=== PATIENT | female | born 1945 | race Caucasian/White ===

== ENCOUNTER 2016-06-12 07:28 | Day surgery (SDC) | payer MEDICARE, OTHER ==
[~2016-06-12 07:28] MED LIST: Acetaminophen TAB* 325 MG PO PRN; Buffered Lidocaine 1% SYR 3ML* 3 ML/SYR SYRINGE INTRADERM ONE
[2016-06-12] MEDS ORDERED: fentaNYL* 50 MCG/ML 2 ML VIAL (100 MCG VIAL) ONE (08:23)
[2016-06-12] MEDS ORDERED: Midazolam* 1 MG/ML 5 ML VIAL (5 MG) ONE (08:23)
[2016-06-12 10:39] VITALS: BP 159/64
--- NOTE | 2016-06-12 12:18 | OP ---
DATE OF OPERATION: 06/12/2016 - [facility] DATE OF : 1945. SURGEON: Landon Ramirez M.D. PREOPERATIVE DIAGNOSIS: Cataract right eye. POSTOPERATIVE DIAGNOSIS: Cataract right eye. OPERATIVE PROCEDURE: Phacoemulsification right eye with IOL. DESCRIPTION OF PROCEDURE: The patient was brought to the operating room after being given 1/2% Alcaine with epinephrine drops in the preoperative area. The eye was prepped and draped in the usual sterile fashion. Sterile drape and eyelid speculum were placed. Again, topical 1/2% Alcaine with epinephrine was given. A paracentesis incision was made at the 9 o'clock position with the No.75 blade. Clear cornea incision 2.2 x 2.2-mm was created at the 12 o'clock position starting at the anterior limbus using the 2.2-mm keratome. The anterior chamber was irrigated with 0.4 mL of 1% non-preservative intracameral lidocaine and filled with DisCoVisc. A capsulorrhexis was completed using the cystotome and the Utrata forceps. Hydrodissection was performed with balanced salt solution. The lens nucleus was removed with the Phacoemulsification handpiece without incident. Cortex was removed with the irrigation-aspiration handpiece. The capsular bag was re-inflated using DisCoVisc and an [id number] implant was inserted with the shooter. The irrigation-aspiration handpiece was used to remove all residual DisCoVisc. The eye was refilled with balanced salt solution and the wound checked and found to be watertight. Topical Maxitrol drops were given. [id number]/[facility] #: [id number] [facility]ITAL[facility]y
[2016-06-13] MEDS ORDERED: Cyclopentolate 1% OPTH.SOL* 2 ML BTL ONE (14:32)
[2016-06-13] MEDS ORDERED: acetaZOLAMIDE TAB* 250 MG ONE (14:32)
[2016-06-13] MEDS ORDERED: Flurbiprofen 0.03% OPTH.SOL* 2.5 ML BTL ONE (14:32)
[2016-06-13] MEDS ORDERED: Proparacaine 0.5% OPHTH.SOL* 15 ML BTL ONE (14:32)
[2016-06-13] MEDS ORDERED: Lidocaine 2% EPI 1:200000 MPF* 20 ML VIAL ONE (14:32)
[2016-06-13] MEDS ORDERED: Phenylephrine 2.5% OPTH.SOL* 2 ML BTL ONE (14:32)
[2016-06-13] MEDS ORDERED: Neomycin/Polymy/Dex OPTH.SUSP* MAXITROL 0.1% 5 ML ONE (14:32)
[2016-06-13] MEDS ORDERED: Lidocaine 1% MPF* 2 ML VIAL ONE (14:32)
[2016-06-13] MEDS ORDERED: Povidone Iodine 5% OPTH* 30 ML BTL ONE (14:32)
== END 2016-06-12 10:36 | disposition home or self-care (01) ==
LOC: OREAST 07:28
PROVIDERS: ATTEND Specialist
DX: H25.811 Combined forms of age-related cataract, right eye (principal); H43.813 Vitreous degeneration, bilateral; I10 Essential (primary) hypertension; R00.2 Palpitations
CPT/HCPCS: A9270-GY; J2250; J3010; V2632

== ENCOUNTER 2016-06-19 06:52 | Day surgery (SDC) | payer MEDICARE, OTHER ==
[2016-06-19] MEDS ORDERED: Lidocaine 1% MPF* 2 ML VIAL ONE (07:06)
[2016-06-19] MEDS ORDERED: Phenylephrine 2.5% OPTH.SOL* 2 ML BTL ONE (07:06)
[2016-06-19] MEDS ORDERED: Flurbiprofen 0.03% OPTH.SOL* 2.5 ML BTL ONE (07:06)
[2016-06-19] MEDS ORDERED: Neomycin/Polymy/Dex OPTH.SUSP* MAXITROL 0.1% 5 ML ONE (07:06)
[2016-06-19] MEDS ORDERED: Cyclopentolate 1% OPTH.SOL* 2 ML BTL ONE (07:06)
[2016-06-19] MEDS ORDERED: acetaZOLAMIDE TAB* 250 MG ONE (07:06)
[2016-06-19] MEDS ORDERED: Lidocaine 2% EPI 1:200000 MPF* 20 ML VIAL ONE (07:06)
[2016-06-19] MEDS ORDERED: Povidone Iodine 5% OPTH* 30 ML BTL ONE (07:06)
[2016-06-19] MEDS ORDERED: Proparacaine 0.5% OPHTH.SOL* 15 ML BTL ONE (07:20)
[2016-06-19 09:23] VITALS: BP 152/84
--- NOTE | 2016-06-20 00:46 | OP ---
DATE OF OPERATION: 06/19/16 - [facility] DATE OF : 45 SURGEON: Landon Ramirez M.D. PREOPERATIVE DIAGNOSIS: Cataract, left eye. POSTOPERATIVE DIAGNOSIS: Cataract, left eye. OPERATIVE PROCEDURE: Phacoemulsification, left eye with IOL. DESCRIPTION OF PROCEDURE: The patient was brought to the operating room after being given 1/2% Alcaine with epinephrine drops in the preoperative area. The eye was prepped and draped in the usual sterile fashion. Sterile drape and eyelid speculum were placed. Again, topical 1/2% Alcaine with epinephrine was given. A paracentesis incision was made at the 3 o'clock position with the No.75 blade. Clear cornea incision 2.2 x 2.2-mm was created at the 6 o'clock position starting at the anterior limbus using the 2.2-mm keratome. The anterior chamber was irrigated with 0.4 mL of 1% non-preservative intracameral lidocaine and filled with DisCoVisc. A capsulorrhexis was completed using the cystotome and the Utrata forceps. Hydrodissection was performed with balanced salt solution. The lens nucleus was removed with the Phacoemulsification handpiece without incident. Cortex was removed with the irrigation-aspiration handpiece. The capsular bag was re-inflated using DisCoVisc and an [id number] 19.5 implant was inserted with the shooter. The irrigation-aspiration handpiece was used to remove all residual DisCoVisc. The eye was refilled with balanced salt solution and the wound checked and found to be watertight. Topical Maxitrol drops were given. [id number]/[facility] #: [id number] [facility]
== END 2016-06-19 09:11 | disposition home or self-care (01) ==
LOC: OREAST 06:52
PROVIDERS: ATTEND Specialist
DX: H25.812 Combined forms of age-related cataract, left eye (principal); H43.813 Vitreous degeneration, bilateral; I10 Essential (primary) hypertension; R00.2 Palpitations
CPT/HCPCS: A9270-GY; V2632

== ENCOUNTER 2016-07-18 07:30 | Inpatient (IN) | payer MEDICARE, OTHER ==
--- NOTE | 2016-07-10 14:17 | HP ---
HISTORY AND PHYSICAL: DATE OF ADMISSION/SURGERY: 07/18/16 PROCEDURE: Left total knee arthroplasty. CHIEF COMPLAINT: Left knee pain. HISTORY OF PRESENT ILLNESS: Ms. Alvarez is a 70-year-old female with complaints of left knee pain s econdary to advanced osteoarthritis. She has failed conservative management and has elected to proc eed with a left total knee arthroplasty which is scheduled for 07/18/[address] Kramer. PAST MEDICAL HISTORY: Hypertension, high cholesterol, hypothyroidism. PAST SURGICAL HISTORY: Tonsillectomy, right total hip arthroplasty, x2, right great toe f usion. CURRENT MEDICATIONS: 1. Ramipril. 2. Hydrochlorothiazide. 3. Amlodipine. 4. Levothyroxine. 5. Atorvastatin. ALLERGIES: No known drug allergies. FAMILY HISTORY: Colon cancer, hypertension, stroke, and aortic aneurysm. SOCIAL HISTORY: She is a 70-year-old female. She is . She does not smoke or use drugs, use s occasional alcohol. REVIEW OF SYSTEMS: A complete review of systems was reviewed with the patient, was positive for hyp othyroidism. Negative for DVT, PE, hepatitis C, HIV, MRSA or anesthesia problems. PHYSICAL EXAMINATION GENERAL: She is well developed, well nourished. She is in no acute distress. She is alert and lucio ented x3. VITAL SIGNS: She stands 5 feet 5 inches tall, weighs 158 pounds. Her blood pressure is 148/90, hea rt rate 68. HEENT: Normocephalic, atraumatic. NECK: Supple. No palpable lymph nodes. Trachea is midline. PULMONARY: Lungs are clear to auscultation bilaterally. No wheezes, rhonchi, or rales. CARDIO: Regular rate and rhythm. Strong S1 and S2. No murmurs, gallops, or rubs. No peripheral ed julianna. ABDOMEN: Soft, nontender, nondistended. MUSCULOSKELETAL: Left lower extremity, the skin is intact. She has a mild-to- moderate joint effus ion and tenderness over the medial and lateral joint line. She has 2+ dorsalis pedis pulses. Intac t sensation and her lower extremity muscle group strengths are intact at 5/5. NEUROLOGICAL: Cranial nerves II through XII are intact. ASSESSMENT AND PLAN: Ms. Alvarez is a 70-year-old female with complaints of left knee pain seconda ry to advanced osteoarthritis. She has failed conservative management and has elected to proceed wi th a left total knee arthroplasty which is scheduled for 07/18/[address] Kramer discuss ed the risks and the benefits of the surgery at today's visit and all her questions were answered. C olace, Percocet and Coumadin were all sent to her pharmacy for postoperative pain control and DVT pr ophylaxis. She will see Dr. Kramer back 10 to 14 days after the surgery. SAJI CHOWDHURY [id number]/[facility] #: [id number]
[~2016-07-18 07:30] MED LIST changes: -Acetaminophen TAB* 325 MG PO PRN; -Buffered Lidocaine 1% SYR 3ML* 3 ML/SYR SYRINGE INTRADERM ONE; +Dexamethasone IV* 4 MG/ML 1 ML (4 MG) IV SLOW PU ONE; +Dexamethasone IV* 4 MG/ML 1 ML (4 MG) ONE; +DiMENhydriNATE IV* 50 MG/ML VIAL IV PUSH PRN; +Famotidine IV* 10 MG/ML 2 ML (20 mg) IV ONE; +Famotidine IV* 10 MG/ML 2 ML (20 mg) ONE; +HYDROmorphone* 1 MG/ML 1 ML SYR ONE; +Midazolam* 1 MG/ML 2 ML VIAL (2 MG) ONE; +Morphine PF AMP (0.5MG/ML)* 5 MG/10 ML AMP ONE; +Ondansetron INJ* 2 MG/ML VIAL IV PRN; +PROCHLORPERAZINE INJ 5 MG/ML 2 ML VIAL IV PRN; +Propofol* 10 MG/ML 20 ML BTL IV PUSH ONE; +ceFAZolin 2 GM PREMIX(*) 2 GM/50 ML BAG IVPB ONE; +fentaNYL* 50 MCG/ML 2 ML VIAL (100 MCG VIAL) IV PRN; +fentaNYL* 50 MCG/ML 2 ML VIAL (100 MCG VIAL) ONE
[2016-07-18] MEDS: Buffered Lidocaine 1% SYRIN* 3 ML/SYR SYRINGE INTRADERM ONE ×2 (07:34→08:03)
[2016-07-18] MEDS ORDERED: HYDROmorphone* 1 MG/ML 1 ML SYR ONE (08:28)
[2016-07-18] MEDS ORDERED: LACTULOSE* 30 ML UDC PO PRN (11:09)
[2016-07-18] MEDS ORDERED: Bisacodyl SUPP* 10 MG SUPP PR PRN (11:09)
[2016-07-18] MEDS ORDERED: Magnesium Hydroxide LIQ* 30 ML UDC PO PRN (11:09)
[2016-07-18] MEDS ORDERED: diPHENhydraMINE IV* 50 MG/ML 1 ml VIAL (BENADRYL) IV PRN ×2 (11:09→11:15)
[2016-07-18] MEDS ORDERED: Polyethylene Glycol 3350* 17 GM PACKET PO PRN (11:09)
[2016-07-18] MEDS ORDERED: oxyCODONE TAB* 5 MG TAB PO PRN (11:09)
[2016-07-18] MEDS ORDERED: Ondansetron TAB* 4 MG PO PRN (11:09)
[2016-07-18] MEDS ORDERED: Morphine INJ* 2 MG/ML 1 ML SYRINGE IV PRN (11:09)
[2016-07-18] MEDS ORDERED: oxyCODONE/Acetamin 5/325 MG* TAB PO PRN ×2 (11:09→11:15)
[2016-07-18] MEDS ORDERED: Acetaminophen TAB* 325 MG PO PRN (11:09)
[2016-07-18] MEDS ORDERED: Ondansetron INJ* 2 MG/ML VIAL IV PRN (11:15)
[2016-07-18] MEDS ORDERED: Naloxone* 0.4 MG/ML 1 ML VIAL IV PRN (11:15)
[2016-07-18] MEDS ORDERED: PROCHLORPERAZINE INJ 5 MG/ML 2 ML VIAL IV PRN (11:15)
[2016-07-18] MEDS ORDERED: DiMENhydriNATE IV* 50 MG/ML VIAL IV PUSH PRN (11:15)
[2016-07-18] MEDS ORDERED: Nalbuphine* 20 MG/ML 1 ML VIAL IV PRN (11:15)
--- NOTE | 2016-07-18 12:02 | RAD ---
INDICATION: Left total knee replacement COMPARISON: March 04, 2016 TECHNIQUE: Portable AP and crosstable lateral views were obtained. FINDINGS: There is LEFT knee arthroplasty. Both tibial and femoral components appear well seated. There is a cooling jacket and a surgical drain. IMPRESSION: POSTOPERATIVE LEFT KNEE ARTHROPLASTY. THE PROSTHESIS APPEARS WELL SEATED
[2016-07-18] MEDS ORDERED: Ondansetron INJ* 2 MG/ML VIAL ONE (12:33)
[2016-07-18] MEDS ORDERED: Artificial Tears* 15 ML BTL BOTH EYES PRN (16:16)
[2016-07-18] MEDS: ceFAZolin 1 GM in Dextrose (*) 1 GM/50 ML BAG IVPB SCH (16:44)
[2016-07-18] MEDS ORDERED: Warfarin TAB(*) 6 MG PO ONE (17:00)
[2016-07-18] MEDS ORDERED: Ramipril CAP* 10 MG PO SCH (18:00)
[2016-07-18] MEDS ORDERED: amLODIPine TAB* 5 MG PO SCH (18:00)
[2016-07-18] MEDS: Atorvastatin* 10 MG TAB PO SCH (18:28)
[2016-07-18] MEDS: Liothyronine TAB* 5 MCG PO SCH (19:17)
[2016-07-18] MEDS: Docusate CAP* 100 MG PO SCH (19:17)
--- NOTE | 2016-07-18 22:47 | CONS ---
MEDICAL CONSULTATION: DATE OF CONSULT: 07/18/16 PRIMARY CARE PROVIDER: Dr. Justice. REQUESTING PROVIDER: Monica Kramer MD. CONSULTING PROVIDER: SAJI Garcia. SUPERVISING PHYSICIAN: Sohail Ambriz MD. CHIEF COMPLAINT: Status post left total knee replacement. HISTORY OF PRESENT ILLNESS: This is a 70-year-old female with history of hypertension, hyperlipidemia, and hypothyroidism who underwent left total knee arthroplasty by Dr. Kramer earlier today. Dr. Kramer has requested hospitalist consultation for medical co-management during her postop recovery. The patient was seen by her primary care provider, Dr. Justice, preoperatively. There were no acute concerns raised at that time. The patient denies any recent illness. No complaints of chest pain or shortness of breath. At the time of evaluation, the patient; however, has no acute complaints. She is somewhat fatigued. She had spinal anesthesia and reports some sensation is returning to her lower extremities and she is able to move both of them freely. She otherwise denies pain, nausea, or vomiting. PAST MEDICAL HISTORY: 1. Hypertension. 2. Hyperlipidemia. 3. Hypothyroidism. SURGICAL HISTORY: 1. Tonsillectomy. 2. Right total hip replacement. 3. x2. 4. Right great toe fusion. HOME MEDICATIONS: 1. Amlodipine 2.5 mg p.o. nightly. 2. Lipitor 10 mg p.o. nightly. 3. Calcium and vitamin D supplements. 4. Kianna 180 mg p.o. daily. 5. Hydrochlorothiazide 25 mg p.o. daily. 6. Liothyronine 5 mcg p.o. b.i.d. 7. Ramipril 10 mg p.o. nightly. SOCIAL HISTORY: The patient lives at home with her . No history of smoking. Drinks 1 glass of wine daily. REVIEW OF SYSTEMS: As listed above in HPI and otherwise negative. PHYSICAL EXAM: Most recent vitals: Temperature 97.5 degrees Fahrenheit, pulse 64 beats per minute, respiratory rate 16, oxygen saturation 100%, blood pressure 111/66 mmHg. General: This is a very pleasant elderly female in no acute distress who appears younger than her stated age. HEENT: Head is normocephalic, atraumatic with moist mucous membranes. She is complaining of a foreign body sensation in her left eye which appears benign on exam. Cardiovascular: Heart has a regular rate and rhythm without murmurs, rubs, or gallops. Respiratory: Lungs are clear to auscultation without wheezes, crackles, or rhonchi. Abdomen: Soft and nontender to palpation. Extremities: Left knee has a surgical dressing in place as well as a brace. No significant edema appreciated. Skin: Limited exam shows no concerning rashes or lesions. LABORATORY EVALUATION: Reviewed labs from 07/10/16. CBC was unremarkable with a preop hemoglobin of 15. Basic metabolic panel from the same date was largely unremarkable with the exception of potassium of 3.2, preop creatinine of 0.85. IMAGING: None available for review. ASSESSMENT AND PLAN: This is a 70-year-old female with a history of hypertension, hyperlipidemia, and hypothyroidism who underwent left total knee arthroplasty by Dr. Kramer earlier today. Hospitalist group has been consulted for medical co- management. 1. Status post left total knee arthroplasty - management per Orthopedic Surgery team including discharge planning, pain management, and DVT prophylaxis. 2. Hypertension - the patient is normotensive or slightly hypotensive postoperatively. We will plan to hold her antihypertensives including amlodipine, ramipril, and hydrochlorothiazide and will reassess the necessity for these medications tomorrow morning. 3. Hypokalemia - the patient was hypokalemic preoperatively. Pending basic metabolic panel for tomorrow morning. 4. Hyperlipidemia - plan to continue statin. 5. Hypothyroidism - no recent TSH available for review. Plan to continue thyroid replacement at current dosing. 6. DVT prophylaxis per Dr. Kramer. Lovenox 30 mg subcu daily has been ordered along with Coumadin. 7. Code status - the patient is full code. 8. Healthcare proxy is the patient's . DISPOSITION: Hospitalist group will continue to follow along with this patient during her postoperative stay. SAJI GARCIA CC: Dr. Justice* [id number]/[facility] #: [id number] MTDD
[2016-07-19] MEDS: ceFAZolin 1 GM in Dextrose (*) 1 GM/50 ML BAG IVPB SCH ×2 (00:40→08:45)
[2016-07-19] MEDS: oxyCODONE/Acetamin 5/325 MG* TAB PO PRN ×5 (01:57→22:10)
--- NOTE | 2016-07-19 06:29 | OP ---
OPERATIVE NOTE: DATE OF OPERATION: 07/18/16 DATE OF : 45 ATTENDING SURGEON: Monica Kramer MD SOFTWARE DEVELOPMENT LEADER: SAJI Sanders ANESTHESIOLOGIST: Dr. Billingsley. ANESTHESIA TYPE: Spinal with adductor nerve block. PRE-OP DIAGNOSIS: Severe end-stage degenerative osteoarthritis of the left knee joint with valgus d eformity. POST-OP DIAGNOSIS: Severe end-stage degenerative osteoarthritis of the left knee joint with valgus deformity. PROCEDURE PERFORMED: Left total knee arthroplasty. SPECIMEN: Bone and cartilage from the left knee joint sent to pathology. COMPLICATIONS: None. EBL: 300 cc. TOURNIQUET TIME: 55 minutes. HARDWARE USED: [employer]ley [employer] cemented total knee hardware. For the femur, a size 4 left narrow femoral component. For the tibia, a size [address] For the insert, an 11-mm engineering project designer ior stabilized articular insert size 3/4. For the patella, a 32-mm 3-peg all-poly patella. BRIEF HISTORY/INDICATION: Ms. Alvarez is a 70-year-old female with years of increasingly severe lef t knee pain and valgus deformity. She failed conservative treatment with anti-inflammatory pain med ication, intra-articular injections, and ambulatory assistive devices as well as physical therapy. Radiographs showed bone- on-bone arthritis in the lateral compartment. The patient's valgus deformi ty was significant. She elected to have left total knee arthroplasty due to continued pain, decreas ed quality of life, and increasing deformity at the knee. Informed consent was obtained from the patient. She understood the risks of the surgery included, b ut were not limited to bleeding, infection, damage to nearby structures, continued pain, need for fu rther surgery, intraoperative fracture, nerve palsy, hardware failure or loosening, knee stiffness, loss of motion, stroke, heart attack, blood clot, and . She wished to proceed. INTRAOPERATIVE FINDINGS: Intraoperatively, the patient was noted to have a 15- degree valgus deform ity. This was corrected to anatomic alignment. Preop range of motion was slight recurvatum to 125 degrees of flexion. Postop range of motion, full extension to 125 degrees of flexion. Lateral femo ral hypoplasia was noted. There was tricompartmental loss of cartilage. DESCRIPTION OF PROCEDURE: Ms. Alvarez was identified in the preanesthesia unit. Her left lower extr emity was marked as the correct operative side. Informed consent was signed and placed in the chart . The patient was taken to the operating room and placed under spinal anesthesia with an adductor n erve block. A Parekh catheter was placed. Tourniquet was placed on the left thigh. Left lower extr emity was prepped and draped in the usual sterile fashion. Preop time-out was made to correctly identify the patient's side and site. Appropriate perioperative antibiotics were given within 1 hour of incision. Tourniquet was inflated. A 12-cm midline incisio n was made with a 10 blade and carried down to the extensor mechanism. The extensor mechanism was t hen incised using a medial parapatellar arthrotomy. The patella was subluxed laterally. Electrocaut jose was used to subperiosteally elevate the soft tissue off the superomedial tibia to the mid sagitt al plane. The knee was flexed up. The anterior horn of the lateral meniscus and ACL were sharply r eleased. A drill was used to enter the distal femur. Intramedullary distal femoral cutting guide w as placed. 9 mm of distal femur was carefully removed with an oscillating saw. External rotation gu faisal was pinned on the distal femur. The distal femur was sized to a size 4. Size 4 multi-cutting j ig was pinned on the distal femur. Oscillating saw was used to make the appropriate 4 chamfer cuts. Any bony fragments were carefully removed. Extramedullary tibial cutting guide was pinned on the proximal tibia. Oscillating saw was used to m sarah a proximal tibial cut perpendicular to the mechanical axis of the tibia. The bone was carefully removed. The knee was brought out into full extension. A spacer block had excellent medial and la teral balancing. Overall alignment of the leg was good. There was good flexion and extension gap b alancing. The knee was flexed up. Lamina spreaders were placed both medially and laterally. Any remaining men iscus was carefully removed with electrocautery. Posterior osteophytes were removed using a curved osteotome. Large osteophytes noted on the preop films were found in the posterior capsule and remov ed. Tibial tray and drop jonna were placed to once again confirm satisfactory proximal tibial cut. Size 4 left narrow femoral trial was chosen and impacted on to the distal femur. This had excellent fit. The box for the posterior stabilized implant was prepared using a reamer and box cut osteotome. A trial 3 tibial tray and 9-mm insert trial were placed. The knee was taken through a range of motion . The knee was noted to be stable in all positions. Full extension and 125 degrees of flexion with good patellofemoral tracking. The patella was everted. 9 mm of patellar bone and cartilage was car efully removed with an oscillating saw. The patella was sized to a size 32. The peg holes were dri lled through the size 32 guide. A 32 trial patella was placed and the knee was taken through a rang e of motion. There was excellent patellofemoral tracking. All trials were carefully removed. The tibia was subluxed anteriorly and sized to a size 3. Proxim al tibia was prepared using a keel punch. All bony cut surfaces were copiously irrigated with steri le saline and dried. Final implants were cemented into place starting with the tibia followed by th e femur and last the patella. An 11-mm insert trial was placed while the knee was brought out into full extension. Tourniquet was turned on at 55 minutes. The cement was allowed to fully cure. Onc e the cement was fully cured, the insert trial was removed. Any excess cement was carefully removed . Electrocautery was used to meticulously obtain hemostasis. Final insert chosen was an 11-mm post erior stabilized articular insert. This was locked into position on the tibial tray without difficu lty. The stability of the insert was checked and rechecked and noted to be stable. Final range of motion with full extension to 130 degrees of flexion. The knee was copiously irrigat ed with sterile saline. Extensor mechanism was closed over a medium Hemovac drain using interrupted #1 Vicryls. The rest of the incision was closed in a layered fashion using 0 and 2-0 Vicryls. Run jamey 3-0 nylon suture was used to close the incision. Sterile Xeroform, 4 x 4's, and Webril were us ed to cover the incision. Arsenio wrap and cold pack were placed over this. The patient's anesthesia was reversed without difficulty. She was taken to the PACU in stable condi tion. Intended weightbearing will be weightbearing as tolerated. Intended DVT prophylaxis will be Coumadin with a Lovenox bridge. [id number]/[facility] #: [id number]
[2016-07-19 06:52] LABS: Hematocrit 36 % (35-47); Hemoglobin 12.3 g/dl (12.0-16.0)
[2016-07-19 07:13] LABS: BUN/Creatinine Ratio 23.9 (8-20); Calcium 8.8 mg/dL (8.6-10.3); EGFR African American 111.9 (>60); Potassium 3.4 mmol/L (3.5-5.0)
[2016-07-19] MEDS ORDERED: Enoxaparin(*) 30 MG/0.3 ML SYR SUBCUT SCH (08:00)
[2016-07-19] MEDS: Liothyronine TAB* 5 MCG PO SCH ×2 (08:44→19:32)
[2016-07-19] MEDS: Docusate CAP* 100 MG PO SCH ×2 (08:44→19:32)
[2016-07-19] MEDS ORDERED: Hydrochlorothiazide TAB* 25 MG PO SCH (09:00)
--- NOTE | 2016-07-19 09:12 | PN ---
Progress Note - Progress Note SOAP: Subjective: patient resting comfortably with no complaints Objective: Vital Signs Temp Pulse Resp BP Pulse Ox 98.0 F 62 16 118/60 97 07/19/16 03:38 07/19/16 07:42 07/19/16 05:43 07/19/16 07:42 07/19/16 07:42 Laboratory Last Values Hgb 12.3 g/dl (12.0-16.0) 07/19/16 06:12 Hct 36 % (35-47) 07/19/16 06:12 INR (Anticoag Therapy) 1.07 (0.89-1.11) 07/19/16 06:12 Sodium 136 mmol/L (133-145) 07/19/16 06:12 Potassium 3.4 mmol/L (3.5-5.0) L 07/19/16 06:12 Chloride 101 mmol/L (101-111) 07/19/16 06:12 Carbon Dioxide 30 mmol/L (22-32) 07/19/16 06:12 Anion Gap 5 mmol/L (2-11) 07/19/16 06:12 BUN 16 mg/dL (6-24) 07/19/16 06:12 Creatinine 0.67 mg/dL (0.51-0.95) 07/19/16 06:12 Est GFR ( Amer) 111.9 (>60) 07/19/16 06:12 Est GFR (Non-Af Amer) 87.0 (>60) 07/19/16 06:12 BUN/Creatinine Ratio 23.9 (8-20) H 07/19/16 06:12 Glucose 130 mg/dL (70-100) H 07/19/16 06:12 Calcium 8.8 mg/dL (8.6-10.3) 07/19/16 06:12 incision: c/d PE: intact B/L LE strengths, intact sensation, 2+ DP pulses Assessment: s/p left TKA Plan: 1) Continue PT/OT-WBAT 2) Continue Lovenox/Coumadin/SCD's for DVT prophylaxis; INR today 1.07; will give 8mg tonight 3) Hospitalist following 4) likely home tomorrow afternoon
--- NOTE | 2016-07-19 13:43 | PN ---
Subjective Date of Service: 07/19/16 Interval History: This is a 70 yo female POD #1 s/p L TKA by Dr Kramer. Hospitalist group has been consulted for management of comorbid medical conditions. Patient offers no acute complaints today. She reports great pain control. Ambulating well. No cough, SOB, CP, abdominal pain, n/v. Objective Active Medications: Acetaminophen (Tylenol Tab*) 650 mg PO Q4H PRN PRN Reason: PAIN OR TEMPERATURE Atorvastatin Calcium (Lipitor*) 10 mg PO QPM [facility] Last Admin: 07/18/16 18:28 Dose: 10 mg Bisacodyl (Dulcolax Supp*) 10 mg KS DAILY PRN PRN Reason: constipation Diphenhydramine HCl (Benadryl Iv*) 12.5 mg IV Q6H PRN PRN Reason: PRURITIS Docusate Sodium (Colace Cap*) 100 mg PO BID [facility] Last Admin: 07/19/16 08:44 Dose: 100 mg Enoxaparin Sodium (Lovenox(*)) 30 mg SUBCUT Q24H [facility] Last Admin: 07/19/16 08:45 Dose: 30 mg Lactated Ringer's (Lactated Ringers 1000 Ml Bag*) 1,000 mls @ 100 mls/hr IV PER RATE [facility] Last Admin: 07/18/16 23:39 Dose: 100 mls/hr Lactulose (Lactulose*) 30 ml PO Q6H PRN PRN Reason: constipation Liothyronine Sodium (Cytomel Tab*) 5 mcg PO BID [facility] Last Admin: 07/19/16 08:44 Dose: 5 mcg Magnesium Hydroxide (Milk Of Magnesia Liq*) 30 ml PO Q6H PRN PRN Reason: constipation Morphine Sulfate (Morphine Inj (Syringe)*) 2 mg IV Q2H PRN PRN Reason: PAIN Ondansetron HCl (Zofran Tab*) 4 mg PO Q6H PRN PRN Reason: NAUSEA Oxycodone HCl (Roxycodone Tab*) 10 mg PO Q4H PRN PRN Reason: SEVERE PAIN Oxycodone/Acetaminophen (Percocet 5/325 Tab*) 1 tab PO Q3H PRN PRN Reason: PAIN - MODERATE Oxycodone/Acetaminophen (Percocet 5/325 Tab*) 2 tab PO Q3H PRN PRN Reason: PAIN - MODERATE Last Admin: 07/19/16 11:49 Dose: 2 tab Polyethylene Glycol/Electrolytes (Miralax*) 17 gm PO DAILY PRN PRN Reason: Constipation Polyvinyl Alcohol (Polyvinyl Alcohol 1.4% Opth*) 1 drop BOTH EYES Q2H PRN PRN Reason: DRY EYE Last Admin: 07/18/16 19:18 Dose: 1 drop Warfarin Sodium (Coumadin Tab(*)) 8 mg PO ONCE@1700 ONE PRN Reason: Protocol Stop: 07/19/16 17:01 Vital Signs: Temp Pulse Resp BP Pulse Ox 97.5 F 59 16 129/61 100 07/19/16 11:19 07/19/16 11:19 07/19/16 11:49 07/19/16 11:19 07/19/16 11:19 Appearance: Well appearing, in NAD Neck: NL Appearance and Movements; NL JVP Respiratory: Symmetrical Chest Expansion and Respiratory Effort, Clear to Auscultation Cardiovascular: NL Sounds; No Murmurs; No JVD, RRR Abdominal: NL Sounds; No Tenderness; No Distention Extremities: No Edema Skin: No Rash or Ulcers Neurological: Alert and Oriented x 3 Result Diagrams: 07/19/16 06:12 07/19/16 06:12 Assess/Plan/Problems-Billing Assessment: This is a 70 yo female with HTN, HLD and hypothyroidism who is s/p L TKA by Dr Kramer 07/18/16. Hospitalist group has been consulted for medical comanagement. - Patient Problems (1) Status post knee replacement Comment: POD #1 Management per ortho team (2) Hypertension Comment: Normotensive Plan to resume amlodipine and ramipril this am Cont to hold HCTZ as she is mildly hypokalemic (3) Hyperlipidemia Comment: Cont statin (4) Hypothyroidism Comment: Cont levothyroxine (5) Full code status (6) DVT prophylaxis Comment: Lovenox and Coumadin per ortho Status and Disposition: Discharge planning per ortho, no acute medical concerns. Patient has plans to return home possibly as early as tomorrow.
[2016-07-19] MEDS ORDERED: Warfarin TAB(*) 4 MG PO ONE (17:00)
[2016-07-19] MEDS: Atorvastatin* 10 MG TAB PO SCH (18:06)
[2016-07-19] MEDS: Ramipril CAP* 10 MG PO SCH (19:32)
[2016-07-19] MEDS: amLODIPine TAB* 5 MG PO SCH (19:33)
[2016-07-20] MEDS: oxyCODONE/Acetamin 5/325 MG* TAB PO PRN ×6 (05:23→23:51)
[2016-07-20 07:28] LABS: Hematocrit 34 % (35-47); Hemoglobin 11.5 g/dl (12.0-16.0); Mean Platelet Volume 9 um3 (7.4-10.4)
[2016-07-20] MEDS: Liothyronine TAB* 5 MCG PO SCH ×2 (08:37→20:39)
[2016-07-20] MEDS: Docusate CAP* 100 MG PO SCH ×2 (08:37→20:37)
--- NOTE | 2016-07-20 10:03 | PN ---
Progress Note - Progress Note SOAP: Subjective: [70 y/o female s/p L TKA 07/[address] Kramer. Patient reports feeling increase pain, nausea yesterday evening/ throughout the night. Now pain control, nausea improved. VSS overnight, H&H stable ] Objective: [General- well appearing, NAD AO - MSK- dressing removed, incision D/C/I, no drainage noted, + DF/PF, PT, DP 2+ b /l, mild edema LLE. sensation grossly intact ] Assessment: [70 y/o female s/p L TKA 07/[address] Kramer] Plan: [- DVT prophylaxis- INR theraputic, hold coumadin today - continue PT - Likely D/C tomorrow - Active Medications Generic Name Dose Route Start Last Admin Trade Name Freq PRN Reason Stop Dose Admin Acetaminophen 650 mg 07/18/16 11:09 Tylenol Tab* PO Q4H PRN PAIN OR TEMPERATURE Amlodipine Besylate 2.5 mg 07/19/16 21:00 07/19/16 19:33 Norvasc Tab* PO 2.5 mg BEDTIME [facility] Administration Atorvastatin Calcium 10 mg 07/18/16 18:00 07/19/16 18:06 Lipitor* PO 10 mg QPM [facility] Administration Bisacodyl 10 mg 07/18/16 11:09 Dulcolax Supp* ME DAILY PRN constipation Diphenhydramine HCl 12.5 mg 07/18/16 11:09 Benadryl Iv* IV Q6H PRN PRURITIS Docusate Sodium 100 mg 07/18/16 21:00 07/20/16 08:37 Colace Cap* PO 100 mg BID [facility]LEY Administration Lactated Ringer's 1,000 mls @ 100 mls/hr 07/18/16 12:00 07/18/16 23:39 Lactated Ringers 1000 Ml Bag* IV 100 mls/hr PER RATE [facility] Administration Lactulose 30 ml 07/18/16 11:09 Lactulose* PO Q6H PRN constipation Liothyronine Sodium 5 mcg 07/18/16 21:00 07/20/16 08:37 Cytomel Tab* PO 5 mcg BID [facility] Administration Magnesium Hydroxide 30 ml 07/18/16 11:09 Milk Of Magnesia Liq* PO Q6H PRN constipation Morphine Sulfate 2 mg 07/18/16 11:09 Morphine Inj (Syringe)* IV Q2H PRN PAIN Ondansetron HCl 4 mg 07/18/16 11:09 07/20/16 01:32 Zofran Tab* PO 4 mg Q6H PRN Administration NAUSEA Oxycodone HCl 10 mg 07/18/16 11:09 07/20/16 01:33 Roxycodone Tab* PO 10 mg Q4H PRN Administration SEVERE PAIN Oxycodone/Acetaminophen 1 tab 07/18/16 11:09 Percocet 5/325 Tab* PO Q3H PRN PAIN - MODERATE Oxycodone/Acetaminophen 2 tab 07/18/16 11:09 07/20/16 08:37 Percocet 5/325 Tab* PO 2 tab Q3H PRN Administration PAIN - MODERATE Polyethylene Glycol/Electrolytes 17 gm 07/18/16 11:09 Miralax* PO DAILY PRN Constipation Polyvinyl Alcohol 1 drop 07/18/16 16:16 07/18/16 19:18 Polyvinyl Alcohol 1.4% Opth* BOTH EYES 1 drop Q2H PRN Administration DRY EYE Ramipril 10 mg 07/19/16 21:00 07/19/16 19:32 Altace Cap* PO 10 mg BEDTIME [facility] Administration ]
--- NOTE | 2016-07-20 10:58 | PN ---
Subjective Date of Service: 07/20/16 Interval History: Patient had difficulty with pain control overnight, which has improved this am. She had some associated HTN which is not surprising in the setting of pain. She is asymptomatic at the time of evaluation. Denies cough, SOB or CP. She vomited last night. No nausea this morning. Objective Active Medications: Acetaminophen (Tylenol Tab*) 650 mg PO Q4H PRN PRN Reason: PAIN OR TEMPERATURE Amlodipine Besylate (Norvasc Tab*) 2.5 mg PO BEDTIME [facility] Last Admin: 07/19/16 19:33 Dose: 2.5 mg Atorvastatin Calcium (Lipitor*) 10 mg PO QPM [facility] Last Admin: 07/19/16 18:06 Dose: 10 mg Bisacodyl (Dulcolax Supp*) 10 mg SC DAILY PRN PRN Reason: constipation Diphenhydramine HCl (Benadryl Iv*) 12.5 mg IV Q6H PRN PRN Reason: PRURITIS Docusate Sodium (Colace Cap*) 100 mg PO BID [facility] Last Admin: 07/20/16 08:37 Dose: 100 mg Lactated Ringer's (Lactated Ringers 1000 Ml Bag*) 1,000 mls @ 100 mls/hr IV PER RATE [facility] Last Admin: 07/18/16 23:39 Dose: 100 mls/hr Lactulose (Lactulose*) 30 ml PO Q6H PRN PRN Reason: constipation Liothyronine Sodium (Cytomel Tab*) 5 mcg PO BID [facility] Last Admin: 07/20/16 08:37 Dose: 5 mcg Magnesium Hydroxide (Milk Of Magnesia Liq*) 30 ml PO Q6H PRN PRN Reason: constipation Morphine Sulfate (Morphine Inj (Syringe)*) 2 mg IV Q2H PRN PRN Reason: PAIN Ondansetron HCl (Zofran Tab*) 4 mg PO Q6H PRN PRN Reason: NAUSEA Last Admin: 07/20/16 01:32 Dose: 4 mg Oxycodone HCl (Roxycodone Tab*) 10 mg PO Q4H PRN PRN Reason: SEVERE PAIN Last Admin: 07/20/16 01:33 Dose: 10 mg Oxycodone/Acetaminophen (Percocet 5/325 Tab*) 1 tab PO Q3H PRN PRN Reason: PAIN - MODERATE Oxycodone/Acetaminophen (Percocet 5/325 Tab*) 2 tab PO Q3H PRN PRN Reason: PAIN - MODERATE Last Admin: 07/20/16 08:37 Dose: 2 tab Polyethylene Glycol/Electrolytes (Miralax*) 17 gm PO DAILY PRN PRN Reason: Constipation Polyvinyl Alcohol (Polyvinyl Alcohol 1.4% Opth*) 1 drop BOTH EYES Q2H PRN PRN Reason: DRY EYE Last Admin: 07/18/16 19:18 Dose: 1 drop Ramipril (Altace Cap*) 10 mg PO BEDTIME [facility] Last Admin: 07/19/16 19:32 Dose: 10 mg Vital Signs: Temp Pulse Resp BP Pulse Ox 98.4 F 69 20 159/68 97 07/20/16 08:19 07/20/16 08:19 07/20/16 08:37 07/20/16 08:19 07/20/16 08:19 Appearance: Well appearing, in NAD. Accompanied by her Neck: NL Appearance and Movements; NL JVP Respiratory: Symmetrical Chest Expansion and Respiratory Effort, Clear to Auscultation Cardiovascular: NL Sounds; No Murmurs; No JVD, RRR Abdominal: NL Sounds; No Tenderness; No Distention Extremities: No Edema Skin: No Rash or Ulcers Neurological: Alert and Oriented x 3 Result Diagrams: 07/20/16 07:01 07/19/16 06:12 Assess/Plan/Problems-Billing Assessment: This is a 70 yo female with HTN, HLD and hypothyroidism who is s/p L TKA by Dr Kramer 07/18/16. Hospitalist group has been consulted for medical comanagement. - Patient Problems (1) Status post knee replacement Comment: POD #2 Management per ortho team Some trouble with pain control overnight, improved this am (2) Hypertension Comment: Slightly hypertensive in the setting of pain Restarted amlodipine and ramipril yesterday Cont to hold HCTZ as she is mildly hypokalemic (3) Hyperlipidemia Comment: Cont statin (4) Hypothyroidism Comment: Cont levothyroxine (5) Full code status (6) DVT prophylaxis Comment: Lovenox and Coumadin per ortho Status and Disposition: Discharge planning per ortho, no acute medical concerns.
[2016-07-20] MEDS ORDERED: Warfarin TAB(*) 2 MG PO ONE ×2 (17:00→17:30)
[2016-07-20] MEDS: Atorvastatin* 10 MG TAB PO SCH (17:36)
[2016-07-20] MEDS: amLODIPine TAB* 5 MG PO SCH (20:37)
[2016-07-20] MEDS: Ramipril CAP* 10 MG PO SCH (20:37)
[2016-07-21] MEDS: oxyCODONE/Acetamin 5/325 MG* TAB PO PRN (07:45)
[2016-07-21 08:40] VITALS: BP 132/69
[2016-07-21] MEDS: Docusate CAP* 100 MG PO SCH (09:04)
[2016-07-21] MEDS: Liothyronine TAB* 5 MCG PO SCH (09:04)
[2016-07-21 09:08] LABS: Hematocrit 37 % (35-47)
--- NOTE | 2016-07-21 09:41 | PN ---
Progress Note - Progress Note SOAP: Subjective: [70 y/o female s/p LEFT TKA on 07/18. Patient feeling better, no complaints of N , pain well controlled, working well with PT, eager for D/C. ] Objective: [General- Well appearing, NAD MSK- Incision C/D/I, + DF/PF. Minimal edema LLE. Vital Signs Temp 98.7 F 07/21/16 08:20 Pulse 76 07/21/16 08:20 Resp 18 07/21/16 08:20 BP 132/69 07/21/16 08:20 Pulse Ox 99 07/21/16 08:20 Intake & Output 07/20/16 07/21/16 07/21/16 18:59 06:59 18:59 Intake Total 800 800 300 Output Total 1750 1200 450 Balance -950 -400 -150 Intake: Oral 800 800 300 Output: Urine 1750 1200 450 Other: # Bowel Movements 0 Laboratory Results - last 24 hr 07/21/16 07/21/16 08:09 08:09 Hgb 12.0 Hct 37 INR (Anticoag Therapy) 2.30 H ] Assessment: [70 y/o female s/p LEFT TKA on 07/18] Plan: - DVT- INR theraputic, no lovenox today, hold coumadin tonight, re-draw tomorrow. - COntinue pain regimen - F/U with DR. Kramer within 1 week - Continue PT exercises. Active Medications Generic Name Dose Route Start Last Admin Trade Name Freq PRN Reason Stop Dose Admin Acetaminophen 650 mg 07/18/16 11:09 Tylenol Tab* PO Q4H PRN PAIN OR TEMPERATURE Amlodipine Besylate 2.5 mg 07/19/16 21:00 07/20/16 20:37 Norvasc Tab* PO 2.5 mg BEDTIME [facility] Administration Atorvastatin Calcium 10 mg 07/18/16 18:00 07/20/16 17:36 Lipitor* PO 10 mg QPM [facility] Administration Bisacodyl 10 mg 07/18/16 11:09 Dulcolax Supp* ID DAILY PRN constipation Diphenhydramine HCl 12.5 mg 07/18/16 11:09 Benadryl Iv* IV Q6H PRN PRURITIS Docusate Sodium 100 mg 07/18/16 21:00 07/21/16 09:04 Colace Cap* PO 100 mg BID CHARLEY Administration Lactated Ringer's 1,000 mls @ 100 mls/hr 07/18/16 12:00 07/18/16 23:39 Lactated Ringers 1000 Ml Bag* IV 100 mls/hr PER RATE [facility] Administration Lactulose 30 ml 07/18/16 11:09 07/20/16 15:40 Lactulose* PO 30 ml Q6H PRN Administration constipation Liothyronine Sodium 5 mcg 07/18/16 21:00 07/21/16 09:04 Cytomel Tab* PO 5 mcg BID [facility]LEY Administration Magnesium Hydroxide 30 ml 07/18/16 11:09 07/21/16 09:06 Milk Of Magnesia Liq* PO 30 ml Q6H PRN Administration constipation Morphine Sulfate 2 mg 07/18/16 11:09 Morphine Inj (Syringe)* IV Q2H PRN PAIN Ondansetron HCl 4 mg 07/18/16 11:09 07/20/16 01:32 Zofran Tab* PO 4 mg Q6H PRN Administration NAUSEA Oxycodone HCl 10 mg 07/18/16 11:09 07/20/16 01:33 Roxycodone Tab* PO 10 mg Q4H PRN Administration SEVERE PAIN Oxycodone/Acetaminophen 1 tab 07/18/16 11:09 07/21/16 03:44 Percocet 5/325 Tab* PO 1 tab Q3H PRN Administration PAIN - MODERATE Oxycodone/Acetaminophen 2 tab 07/18/16 11:09 07/21/16 07:45 Percocet 5/325 Tab* PO 2 tab Q3H PRN Administration PAIN - MODERATE Polyethylene Glycol/Electrolytes 17 gm 07/18/16 11:09 Miralax* PO DAILY PRN Constipation Polyvinyl Alcohol 1 drop 07/18/16 16:16 07/18/16 19:18 Polyvinyl Alcohol 1.4% Opth* BOTH EYES 1 drop Q2H PRN Administration DRY EYE Ramipril 10 mg 07/19/16 21:00 07/20/16 20:37 Altace Cap* PO 10 mg BEDTIME CHARLEY Administration ]
--- NOTE | 2016-07-21 11:05 | PN ---
Subjective Date of Service: 07/21/16 Interval History: Patient was discharged earlier this am by orthopedic service. Reviewed nursing notes from overnight, vitals and am labs, which appeared unremarkable. Objective Active Medications: Acetaminophen (Tylenol Tab*) 650 mg PO Q4H PRN PRN Reason: PAIN OR TEMPERATURE Amlodipine Besylate (Norvasc Tab*) 2.5 mg PO BEDTIME [facility] Last Admin: 07/20/16 20:37 Dose: 2.5 mg Atorvastatin Calcium (Lipitor*) 10 mg PO QPM [facility] Last Admin: 07/20/16 17:36 Dose: 10 mg Bisacodyl (Dulcolax Supp*) 10 mg GA DAILY PRN PRN Reason: constipation Diphenhydramine HCl (Benadryl Iv*) 12.5 mg IV Q6H PRN PRN Reason: PRURITIS Docusate Sodium (Colace Cap*) 100 mg PO BID [facility] Last Admin: 07/21/16 09:04 Dose: 100 mg Lactated Ringer's (Lactated Ringers 1000 Ml Bag*) 1,000 mls @ 100 mls/hr IV PER RATE [facility] Last Admin: 07/18/16 23:39 Dose: 100 mls/hr Lactulose (Lactulose*) 30 ml PO Q6H PRN PRN Reason: constipation Last Admin: 07/20/16 15:40 Dose: 30 ml Liothyronine Sodium (Cytomel Tab*) 5 mcg PO BID [facility] Last Admin: 07/21/16 09:04 Dose: 5 mcg Magnesium Hydroxide (Milk Of Magnesia Liq*) 30 ml PO Q6H PRN PRN Reason: constipation Last Admin: 07/21/16 09:06 Dose: 30 ml Morphine Sulfate (Morphine Inj (Syringe)*) 2 mg IV Q2H PRN PRN Reason: PAIN Ondansetron HCl (Zofran Tab*) 4 mg PO Q6H PRN PRN Reason: NAUSEA Last Admin: 07/20/16 01:32 Dose: 4 mg Oxycodone HCl (Roxycodone Tab*) 10 mg PO Q4H PRN PRN Reason: SEVERE PAIN Last Admin: 07/20/16 01:33 Dose: 10 mg Oxycodone/Acetaminophen (Percocet 5/325 Tab*) 1 tab PO Q3H PRN PRN Reason: PAIN - MODERATE Last Admin: 07/21/16 03:44 Dose: 1 tab Oxycodone/Acetaminophen (Percocet 5/325 Tab*) 2 tab PO Q3H PRN PRN Reason: PAIN - MODERATE Last Admin: 07/21/16 07:45 Dose: 2 tab Polyethylene Glycol/Electrolytes (Miralax*) 17 gm PO DAILY PRN PRN Reason: Constipation Polyvinyl Alcohol (Polyvinyl Alcohol 1.4% Opth*) 1 drop BOTH EYES Q2H PRN PRN Reason: DRY EYE Last Admin: 07/18/16 19:18 Dose: 1 drop Ramipril (Altace Cap*) 10 mg PO BEDTIME [facility] Last Admin: 07/20/16 20:37 Dose: 10 mg Vital Signs: Temp Pulse Resp BP Pulse Ox 98.7 F 76 18 132/69 99 07/21/16 08:20 07/21/16 08:20 07/21/16 09:45 07/21/16 08:20 07/21/16 08:20 Appearance: Exam not completed Result Diagrams: 07/21/16 08:09 07/19/16 06:12 Assess/Plan/Problems-Billing Assessment: This is a 70 yo female with HTN, HLD and hypothyroidism who is s/p L TKA by Dr Kramer 07/18/16. Hospitalist group has been consulted for medical comanagement. - Patient Problems (1) Status post knee replacement Comment: POD #3 Discharge by ortho team today (2) Hypertension Comment: Now normotensive Restarted amlodipine and ramipril HCTZ can be resumed at discharge (3) Hyperlipidemia Comment: Cont statin (4) Hypothyroidism Comment: Cont levothyroxine (5) Full code status (6) DVT prophylaxis Comment: Coumadin per ortho Status and Disposition: Discharge by ortho today. No changes to home medications. No medical complications during hospital stay.
--- NOTE | 2016-07-22 04:00 | DS ---
DISCHARGE SUMMARY: DATE OF ADMISSION: 07/18/16 DATE OF DISCHARGE: 07/21/16 CHIEF COMPLIANT: 1. Left knee osteoarthritis. 2. Hypertension. 3. Elevated cholesterol. 4. Hypothyroidism. DISCHARGE DIAGNOSES: 1. Status post left total knee arthroplasty. 2. Hypertension. 3. Elevated cholesterol. 4. Hypothyroidism. PROCEDURE: Left total knee arthroplasty. CONSULTATION: 1. Physical Therapy. 2. Occupational Therapy. 3. Medicine. BRIEF HISTORY: Mrs. Alvarez is a very pleasant 70-year-old female with severe end- stage degenerative arthritis of the left knee who failed conservative treatment and elected to undergo a left total knee arthroplasty on 07/21/[address] Monica Kramer. HOSPITAL COURSE: Mrs. Alvarez was admitted to [facility] on where she underwent a left total knee arthroplasty. Postoperatively, she recovered on the surgical short stay unit. On postoperative day 2, her Parekh was removed and she was voiding without difficulty. She advanced to regular diet and her pain was controlled with p.o. Percocet. Immediately, postoperatively the patient did have some difficulty with nausea and pain control; however, by postoperative day 2 was tolerating Percocet for her pain management without difficulty. Her labs and vital signs remained stable. She is able to bear weight as tolerated on the left lower extremity. She advanced appropriately with physical therapy and occupational therapy. Her DVT prophylaxis was managed with Lovenox and Coumadin until she reached the therapeutic INR. By postoperative day 3, she was orthopedically and medically stable for discharge to go home with home services. PHYSICAL EXAMINATION: General: Well-appearing, in no acute distress. Alert and oriented. Sitting in bed comfortably. Vital Signs: On date of discharge, temperature 98.7, pulse 76, respirations 18, blood pressure 132/69. Pulse oxygenation is 99% on room air. Extremities: Examination of the left lower extremity shows minimal left lower extremity edema with positive dorsiflexion and plantarflexion bilaterally. The incision was clean, dry and intact with no sign of drainage and minimal ecchymosis surrounding the incision. LABORATORY DATA: On date of discharge, H and H 12.0 and 37 with an INR of 2.30. Postoperative x-rays show a left total knee arthroplasty with well-seated prosthesis. DISCHARGE MEDICATIONS: 1. Colace 100 mg p.o. b.i.d. 2. Tylenol 650 mg p.o. q.8 hours p.r.n., but the patient notified not to take more than 4000 mg of Tylenol on any day. 3. Amlodipine 2.5 mg p.o. q.p.m. 4. Artificial Tears 1 drop both eyes q.2 hours p.r.n. 5. Lipitor 10 mg p.o. q.p.m. 6. Calcium and vitamin D supplementation 1 tablet p.o. q.p.m. 7. Kianna 180 mg p.o. daily. 8. Hydrochlorothiazide 25 mg p.o. q.a.m. 9. Cytomel 5 mcg p.o. b.i.d. 10. Altace 10 mg p.o. q. p.m. 11. Coumadin 2 mg tablets 1 or 3 tablets p.o. daily at 5 p.m. per provider instructions. 12. Percocet 5/325 mg p.o. 1 to 2 tablets every 3 hours as needed for pain. CONDITION ON DISCHARGE: Stable. DISCHARGE INSTRUCTIONS: Mrs. Alvarez is a very pleasant 70-year-old female, postoperative day 3 from a left total knee arthroplasty, which was uncomplicated. She is orthopedically and medically stable for discharge to go home with home services. Her labs and vital signs are stable. She will restart her home medications. She will hold the Coumadin dosing tonight and will have an INR check on Friday. She will have INR checks every Friday and with visiting home nurse services. She remained weightbearing as tolerated on the left lower extremity. She will have home physical therapy twice a week. She will take Percocet as needed for pain control and Colace up to 3 times a day for constipation. She will follow up with Dr. Kramer in approximately 10 days for incision check and suture removal. She was instructed to go immediately to the ER should she develop chest pain or shortness of breath. Should she develop fever, increasing pain or increasing redness, she is to call the office immediately. SAJI SAPP [id number]/[facility] #: [id number] [facility] SYSTEMCecy
== END 2016-07-21 10:30 | disposition home health service (06) | DRG 470 ==
LOC: AA 07:33 → SSU 13:24
PROVIDERS: ADMIT Orthopaedic Surgery Adult Reconstructive Orthopaedic Surgery; ATTEND Orthopaedic Surgery Adult Reconstructive Orthopaedic Surgery
PROC: 0SRD0J9 Replacement of Left Knee Joint with Synthetic Substitute, Cemented, Open Approach (ICD-10-PCS; principal; 2016-07-18 08:00)
DX: M17.12 Unilateral primary osteoarthritis, left knee (principal); I10 Essential (primary) hypertension; E03.9 Hypothyroidism, unspecified; E78.5 Hyperlipidemia, unspecified; Z96.641 Presence of right artificial hip joint; E87.6 Hypokalemia; E78.00 Pure hypercholesterolemia, unspecified; M21.062 Valgus deformity, not elsewhere classified, left knee; M25.762 Osteophyte, left knee; Z82.49 Family history of ischemic heart disease and other diseases of the circulatory system; Z82.3 Family history of stroke; Z80.0 Family history of malignant neoplasm of digestive organs; Z98.1 Arthrodesis status; R11.0 Nausea; Z79.01 Long term (current) use of anticoagulants
CPT/HCPCS: 36415; 80048; 83036; 85014; 85018; 85049; 85610; 94760; A9270-GY; C1776; J0690; J1100; J1170; J1650; J2250; J2405; J2704; J3010

== ENCOUNTER 2021-07-20 06:47 | Observation (INO) ==
[~2021-07-20 06:47] MED LIST changes: +Buffered Lidocaine 1% SYRIN 1 ml INTRADERM ONE; +Bupivacaine 0.5% 50 ML MDV VIAL ONE; -Dexamethasone IV* 4 MG/ML 1 ML (4 MG) IV SLOW PU ONE; -Dexamethasone IV* 4 MG/ML 1 ML (4 MG) ONE; -DiMENhydriNATE IV* 50 MG/ML VIAL IV PUSH PRN; -Famotidine IV* 10 MG/ML 2 ML (20 mg) IV ONE; -Famotidine IV* 10 MG/ML 2 ML (20 mg) ONE; -HYDROmorphone* 1 MG/ML 1 ML SYR ONE; +Lactated Ringers 1000 ml BAG 1,000 ML IV SCH; -Midazolam* 1 MG/ML 2 ML VIAL (2 MG) ONE; -Morphine PF AMP (0.5MG/ML)* 5 MG/10 ML AMP ONE; -Ondansetron INJ* 2 MG/ML VIAL IV PRN; -PROCHLORPERAZINE INJ 5 MG/ML 2 ML VIAL IV PRN; +Propofol 10 mg/ml 100 ML BTL 100 ML ONE; -Propofol* 10 MG/ML 20 ML BTL IV PUSH ONE; -ceFAZolin 2 GM PREMIX(*) 2 GM/50 ML BAG IVPB ONE; -fentaNYL* 50 MCG/ML 2 ML VIAL (100 MCG VIAL) IV PRN; -fentaNYL* 50 MCG/ML 2 ML VIAL (100 MCG VIAL) ONE
[2021-07-20] MEDS ORDERED: ceFAZolin 2 GM PREMIX 2 GM/50 ML BAG ONE (07:09)
[2021-07-20] MEDS ORDERED: fentaNYL 100 mcg/2 ml 50 MCG/ML VIAL IV PRN (07:15)
[2021-07-20] MEDS ORDERED: Ondansetron 4 mg VIAL 2 MG/ML 2 ml VIAL IV PRN ×2 (07:15→10:47)
[2021-07-20] MEDS ORDERED: Naloxone 0.4 mg VIAL 0.4 mg/ml 1 ml VIAL IV PRN (07:15)
[2021-07-20] MEDS ORDERED: Lidocaine 1% MPF 5 ML VIAL ONE (07:21)
[2021-07-20 07:41] LABS: INR 1.12 (0.86-1.15)
[2021-07-20] MEDS ORDERED: ROPIVACAINE 5 MG/ML 30 ML BTL (0.5%) ONE (07:58)
[2021-07-20] MEDS ORDERED: Midazolam 2 mg/2 ml VIAL 1 mg/ml 2 ml VIAL (2 mg) ONE (07:59)
[2021-07-20] MEDS ORDERED: Dexamethasone IV 4 MG/ML VIAL 1 ml VIAL ONE ×2 (07:59→08:43)
[2021-07-20] MEDS ORDERED: Acetaminophen IV 1 GM/100ML 100 ML IV ONE (08:43)
[2021-07-20] MEDS ORDERED: Ondansetron 4 mg VIAL 2 MG/ML 2 ml VIAL ONE (08:43)
[2021-07-20] MEDS ORDERED: Lidocaine 2% PF 5 ML VIAL ONE (08:43)
[2021-07-20] MEDS ORDERED: fentaNYL 100 mcg/2 ml 50 MCG/ML VIAL ONE ×2 (08:43→09:29)
[2021-07-20] MEDS ORDERED: Phenylephrine IV 10 MG/ML 1 ml VIAL ONE (08:43)
[2021-07-20] MEDS ORDERED: Ropivacaine 5 MG/ML 20 ML VIAL 0.5% (100 MG) ONE (09:04)
[2021-07-20] MEDS ORDERED: EPHEDrine (Pressors) 50 MG/ML VIAL ONE (09:51)
[2021-07-20] MEDS ORDERED: Ondansetron ODT 4 mg TAB 4 MG TAB PO PRN (10:47)
[2021-07-20] MEDS ORDERED: Magnesium Hydroxide LIQ 30 ML UDC PO PRN (10:47)
[2021-07-20] MEDS ORDERED: Lactulose 30 ml UDC PO PRN (10:47)
[2021-07-20] MEDS ORDERED: Morphine 2 MG/ML SYRINGE IV PRN (10:47)
[2021-07-20] MEDS: Lactated Ringers 1000 ml BAG 1,000 ML IV SCH (13:47)
[2021-07-20] MEDS ORDERED: ceFAZolin 1 GM ADVAN 1 GM in NS 0.9% 50 ML 50 ML IVPB SCH (17:30)
[2021-07-20] MEDS: Magnesium Hydroxide LIQ 30 ML UDC PO SCH (20:40)
[2021-07-21] MEDS: Lactated Ringers 1000 ml BAG 1,000 ML IV SCH (00:06)
[2021-07-21] MEDS: ceFAZolin 1 GM in Dextrose 1 GM/50 ML BAG IVPB SCH ×2 (02:02→09:14)
[2021-07-21 06:44] LABS: Hematocrit 35 % (35-47); Hemoglobin 12.2 g/dL (12.0-16.0); Mean Platelet Volume 8.8 fL (7.4-10.4); Platelet Count 167 10^3/uL (150-450)
[2021-07-21 07:05] LABS: Calcium 8.6 mg/dL (8.6-10.3); eGFR CKD-EPI 88.6 (>60)
[2021-07-21] MEDS: Magnesium Hydroxide LIQ 30 ML UDC PO SCH (07:58)
[2021-07-21] MEDS ORDERED: Vitamin THERAPEUTIC TAB PO SCH (09:00)
[2021-07-21 11:49] VITALS: BP 137/55
== END 2021-07-21 14:45 | disposition home or self-care (01) ==
LOC: OR 06:47 → SSU 06:47
PROVIDERS: ADMIT Orthopaedic Surgery Adult Reconstructive Orthopaedic Surgery; ATTEND Orthopaedic Surgery Adult Reconstructive Orthopaedic Surgery